=== PATIENT | male | born 1975 | race Caucasian/White ===

== ENCOUNTER 2019-04-05 01:41 | Outpatient (CLI) | payer MEDICAID, SELFPAY ==
[2019-04-05] MEDS: Gadoterate meglumine 20 ML VIAL 16 ML IVP (10:10)
[2019-04-05] MEDS: Normal Saline Flush 10 ML SYR IVP (10:11)
--- NOTE | 2019-04-05 10:39 | DI.MRI_ITS ---
SYMPTOMS/DIAGNOSIS: ABNL AUDITORY PERCEPTION, H93.299 MRI OF THE BRAIN AND INTERNAL AUDITORY CANALS: Comparison is made with head CT dated [id number]. T 2 sagittal, T 1, T 2, FLAIR, diffusion and gradient echo axial and post Gadolinium axial and coronal sequences were performed of the entire brain. Thin T 2 3D axial and pre and post Gadolinium T 1 axial and coronal sequences were performed through the internal auditory canals. There is no evidence of an acoustic neuroma or other CP angle mass. The mastoid air cells and internal auditory and external auditory canals appear clear. There are no abnormal enhancing lesions. The brain has a normal appearance. There are no abnormal high signal lesions in the white matter. The ventricles are normal in size. The orbits, sinuses and pituitary are unremarkable. IMPRESSION: Negative MRI of the brain and internal auditory canals.
== END 2019-04-05 02:01 ==
PROVIDERS: PCP Physician Assistant Medical; Visit Provider Physician Assistant
DX: H93.299 Other abnormal auditory perceptions, unspecified ear (principal)
CPT/HCPCS: 70553

== ENCOUNTER 2019-06-28 16:00 | Outpatient (REF) | payer MEDICAID, SELFPAY ==
[2019-06-28 20:49] LABS: Calculated LDL 229 mg/dL; Cholesterol 289 mg/dL (50-200); HDL Cholesterol 33 mg/dL (40-60); Triglyceride 136 mg/dL (30-150)
== END 2019-06-28 16:20 ==
LOC: NCHCN 16:00
PROVIDERS: PCP Physician Assistant Medical; Visit Provider Physician Assistant Medical
DX: Z13.220 Encounter for screening for lipoid disorders (principal)
CPT/HCPCS: 80061; 83721

== ENCOUNTER 2019-07-12 15:56 | Emergency (ER) | payer MEDICAID, SELFPAY ==
[2019-07-12 16:03] VITALS: BP 110/70; PULSE 80; RESP 16; TEMP 36.3; O2SAT 99
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
[2019-07-12] MEDS: Acetaminophen 500 MG TAB 1000 MG PO (16:16)
[2019-07-12] MEDS: Ibuprofen 600 MG TAB PO (16:16)
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
[2019-07-12 17:40] VITALS: BP 110/70; PULSE 80; RESP 16; TEMP 36.3; O2SAT 99
== END 2019-07-12 17:39 | disposition home or self-care (01) ==
PROVIDERS: Emergency Provider Physician Assistant; PCP Physician Assistant Medical
DX: S62.331A Displaced fracture of neck of second metacarpal bone, left hand, initial encounter for closed fracture (principal); W22.09XA Striking against other stationary object, initial encounter
CPT/HCPCS: 26600; 73130

== ENCOUNTER 2020-04-28 12:55 | Emergency (ER) | payer MEDICAID, SELFPAY ==
[2020-04-28] VITALS (18 sets, daily range): BP systolic 116–134; BP diastolic 64–89; PULSE 52–75; RESP 12–29; TEMP 36.5; O2SAT 97–100
--- NOTE | 2020-04-28 12:48 | ED.GENADUL_ITS ---
Discharge Plan Disposition Patient Disposition: HOME Condition: Stable Discharge Details Chief Complaint: AMS/LOC Clinical Impression: Unresponsive episode, History of traumatic brain injury, Closed head injury Primary Care Provider: Tricia Leach ED Provider: Abida Garza Home Meds and New Rx's Prescriptions: Discontinued levetiracetam 500 mg Tablet 500 mg PO BID RF: 0 Discharge Instructions Instructions: Head Injury (ED) Additional Instructions: Drink plenty of fluids and get plenty of rest. Take Tylenol as needed and directed for pain. Follow-up with your primary care doctor in 1 week. Return to the emergency department with any worsening or new concerning symptoms. Discharge Data Discharge Date/Time-TO BE ENTERED AT DEPARTURE: 04/28/20 16:18 Discharge Physician: Abida Garza Medical Decision Making 1300 -- 44-year-old male with a history of anxiety, traumatic brain injury presents for after found unresponsive on a porch by a neighbor earlier today. Patient on arrival with a strong gag reflex. He then suddenly awake and was moving all extremities and answering questions. He has a superficial abrasion to his forehead no other evidence of trauma. He is moving all extremities. Lungs clear. Abdomen soft nontender. He has midline T-spine tenderness. Will obtain CT head/facial bone/cervical spine/chest/abdomen/pelvis/thoracic and lumbar spine. Will obtain screening labs including tox work-up and urinalysis. 1430 --labs and imaging reviewed and unremarkable. Patient reassessed -- he is awake, slightly drowsy but oriented x3 and able an swer questions. Still complaining of headache. Will give another liter of fluids, IV Tylenol, attempt p.o. challenge and ambulate. 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 She states they occur almost daily, sometimes more severe in which he seems to become unresponsive which last anywhere from a few seconds to a few minutes. She states at the time of his head injury, he was ruled out for seizures regarding these drop attacks. 1545 --patient able to eat and ambulate without any acute complaints. Patient feels good to go home. Advised to follow up with the primary care doctor for re-evaluation. Usual and customary return precautions given prior to discharge. Medical Records Medical records reviewed: Yes I reviewed the patient's medical records. Imaging Data Radiologic Study: Radiologist's impression: CT Thoracic Spine Without Contrast Exam date and time: 04/28/2020 1:43 PM Age: 44 years old Clinical indication: Other: Recon, S/P fall, R/O acute fracture TECHNIQUE: Imaging protocol: Computed tomography images of the thoracic spine without contrast. Radiation optimization: All CT scans at this facility use at least one of these dose optimization techniques: automated exposure control; mA and/or kV adjustment per patient size (includes targeted exams where dose is matched to clinical indication); or iterative reconstruction. COMPARISON: CR LUMBAR SPINE COMPLETE 03/28/2015 11:21 AM FINDINGS: Mild degenerative spurring of the thoracic spine. No focal subluxation. No acute fractures. Paraspinous soft tissues unremarkable. No definite significant disc protrusion or herniation. IMPRESSION: No evidence of acute bony abnormality. CT Lumbar Spine Without Contrast Exam date and time: 04/28/2020 1:43 PM Age: 44 years old Clinical indication: Other: Recon, S/P fall, R/O acute fracture TECHNIQUE: Imaging protocol: Computed tomography images of the lumbar spine without contrast. Radiation optimization: All CT scans at this facility use at least one of these dose optimization techniques: automated exposure control; mA and/or kV adjustment per patient size (includes targeted exams where dose is matched to clinical indication); or iterative reconstruction. COMPARISON: CR LUMBAR SPINE COMPLETE 03/28/2015 11:21 AM FINDINGS: Mild degenerative spurring of the lumbar spine. No focal subluxation. No acute fractures. Paraspinous soft tissues unremarkable. No definite significant disc protrusion or herniation. IMPRESSION: No evidence of acute bony abnormality. CT Chest With Contrast Exam date and time: 04/28/2020 1:43 PM Age: 44 years old Clinical indication: Injury or trauma; Injury history: Found unconcious; Initial encounter; Unconscious TECHNIQUE: Imaging protocol: Computed tomography of the chest with intravenous contrast. COMPARISON: No relevant prior studies available. FINDINGS: Mediastinum appears unremarkable. No pneumothorax. No pleural effusion. Bony structures appear intact. IMPRESSION: No evidence of significant thoracic trauma. CT Abdomen And Pelvis With Contrast Exam date and time: 04/28/2020 1:43 PM Age: 44 years old Clinical indication: Injury or trauma; Injury history: Found unconcious; Initial encounter; Unconscious TECHNIQUE: Imaging protocol: Computed tomography of the abdomen and pelvis with intravenous contrast. COMPARISON: No relevant prior studies available. FINDINGS: Liver, spleen, and kidneys appear intact. No abnormal fluid collections. No extraluminal air. Bony structures appear intact. IMPRESSION: No evidence of significant abdominal or pelvic trauma. CT Head Without Contrast Exam date and time: 04/28/2020 1:13 PM Age: 44 years old Clinical indication: Injury or trauma; Injury history: Unknown, PT has known tbi and is unable to communicate, found unconscious at home; Initial encounter; Blunt trauma (contusions or hematomas) TECHNIQUE: Imaging protocol: Computed tomography of the head without contrast. COMPARISON: No relevant prior studies available. FINDINGS: No evidence of hemorrhage. No mass effect. No acute intracranial abnormality. No evidence of acute fracture. IMPRESSION: No evidence of acute intracranial process. CT Maxillofacial Without Contrast Exam date and time: 04/28/2020 1:13 PM Age: 44 years old Clinical indication: Injury or trauma; Injury history: Unknown, PT has known tbi and is unable to communicate, found unconscious at home; Initial encounter; Blunt trauma (contusions or hematomas) Other procedure information: He TECHNIQUE: Imaging protocol: Computed tomography images of the face without contrast. COMPARISON: No relevant prior studies available. FINDINGS: Orbits: Globes appear intact. Bones/joints: Facial bones appear intact. Sinuses: Paranasal sinuses unremarkable. Soft tissues: No radiopaque foreign bodies. IMPRESSION: No evidence of acute bony abnormality. CT Cervical Spine Without Contrast Exam date and time: 04/28/2020 1:13 PM Age: 44 years old Clinical indication: Injury or trauma; Injury history: Unknown, PT has known tbi and is unable to communicate, found unconscious at home; Initial encounter; Blunt trauma (contusions or hematomas) TECHNIQUE: Imaging protocol: Computed tomography images of the cervical spine without contrast. COMPARISON: No relevant prior studies available. FINDINGS: Mild degenerative disc and facet disease of the mid cervical spine. No focal subluxation. No acute fracture. Paraspinous soft tissues unremarkable. IMPRESSION: No evidence of acute bony abnormality. Lab Data Lab results reviewed: Yes I reviewed the patient's lab results. Labs: Laboratory Tests Range/Units 04/28/20 04/28/20 04/28/20 13:15 13:15 13:15 WBC (4.4-10.8) k/cumm 7.84 RBC (4.50-6.00) m/cumm 4.94 Hgb (13.5-17.5) g/dL 16.3 Hct (40.0-50.0) % 44.8 MCV (80-95) fL 90.7 MCH (27.0-33.0) pg 33.0 MCHC (32.0-36.0) g/dL 36.4 H RDW (11.8-14.1) % 12.2 Plt Count (130-400) x1000/uL 243 MPV (8.0-11.0) fL 10.4 Immature Gran % % 0.3 Neutrophils % 75.5 Lymphocytes % 14.2 Monocytes % 8.7 Eosinophils % 1.0 Basophils % 0.3 Absolute Neutrophils (1.2-6.7) k/cumm 5.93 Absolute Lymphocytes (1.2-3.4) k/cumm 1.11 L Absolute Monocytes (0.11-0.7) k/cumm 0.68 Absolute Eosinophils (0.0-0.7) k/cumm 0.08 Absolute Basophils (0.0-0.2) k/cumm 0.02 PT (9.3-11.0) sec INR (0.9-1.1) APTT (21.0-31.4) sec Sodium (136-145) mmol/L 139 Potassium (3.5-5.1) mmol/L 4.7 Chloride (98-107) mmol/L 105 Carbon Dioxide (21.0-32.0) mmol/L 24.2 Anion Gap (3-11) mmol/L 9.8 BUN (7-18) mg/dL 13 Creatinine (0.70-1.30) mg/dL 1.48 H Estimated GFR/1.73 m2 (mL/min/1.73m2) 51.40 Glucose (74-106) mg/dL 103 Calcium (8.5-10.1) mg/dL 8.8 Magnesium (1.8-2.4) mg/dL 2.6 H Total Bilirubin (0.2-1.0) mg/dL 0.4 AST (15-37) U/L 28 ALT (16-63) U/L 36 Alkaline Phosphatase (46-116) U/L 114 Troponin I (<0.06) ng/mL < 0.05 Total Protein (6.4-8.2) g/dL 7.4 Albumin (3.4-5.0) g/dL 4.0 Lipase (73-393) U/L 85 Urine Color (Yellow) Urine Clarity (Clear) Urine pH (5-8) Ur Specific [place] (1.005-1.025) Urine Protein (Negative) mg/dL Urine Ketones (Negative) mg/dL Urine Blood (Negative) Urine Nitrite (Negative) Urine Bilirubin (Negative) Urine Urobilinogen (Up TO 0.2) EU/dL Ur Leukocyte Esterase (Negative) Urine RBC (0-2) HPF Urine WBC (0-5) HPF Ur Epithelial Cells (Negative) HPF Urine Crystals (Negative) HPF Urine Bacteria (Negative) HPF Urine Casts (Negative) LPF Urine Mucus (Negative) Ur Culture Indicated? Urine Glucose (Negative) mg/dL Salicylates (2.8-20.0) mg/dL 5.7 Urine Opiates Screen (Negative) Urine Methadone Screen (Negative) Acetaminophen (10-30) ug/mL < 2 Ur Barbiturates Screen (Negative) Ur Tricyclics Screen (Negative) Ur Amphetamines Screen (Negative) U Benzodiazepines Scrn (Negative) Urine Cocaine Screen (Negative) Ur THC Screen (Negative) Ethyl Alcohol (<3) mg/dL < 3.0 Range/Units 04/28/20 04/28/20 04/28/20 13:15 14:10 14:10 WBC (4.4-10.8) k/cumm RBC (4.50-6.00) m/cumm Hgb (13.5-17.5) g/dL Hct (40.0-50.0) % MCV (80-95) fL MCH (27.0-33.0) pg MCHC (32.0-36.0) g/dL RDW (11.8-14.1) % Plt Count (130-400) x1000/uL MPV (8.0-11.0) fL Immature Gran % % Neutrophils % Lymphocytes % Monocytes % Eosinophils % Basophils % Absolute Neutrophils (1.2-6.7) k/cumm Absolute Lymphocytes (1.2-3.4) k/cumm Absolute Monocytes (0.11-0.7) k/cumm Absolute Eosinophils (0.0-0.7) k/cumm Absolute Basophils (0.0-0.2) k/cumm PT (9.3-11.0) sec 9.9 INR (0.9-1.1) 1.0 APTT (21.0-31.4) sec 22.8 Sodium (136-145) mmol/L Potassium (3.5-5.1) mmol/L Chloride (98-107) mmol/L Carbon Dioxide (21.0-32.0) mmol/L Anion Gap (3-11) mmol/L BUN (7-18) mg/dL Creatinine (0.70-1.30) mg/dL Estimated GFR/1.73 m2 (mL/min/1.73m2) Glucose (74-106) mg/dL Calcium (8.5-10.1) mg/dL Magnesium (1.8-2.4) mg/dL Total Bilirubin (0.2-1.0) mg/dL AST (15-37) U/L ALT (16-63) U/L Alkaline Phosphatase (46-116) U/L Troponin I (<0.06) ng/mL Total Protein (6.4-8.2) g/dL Albumin (3.4-5.0) g/dL Lipase (73-393) U/L Urine Color (Yellow) Yellow Urine Clarity (Clear) Clear Urine pH (5-8) 6.0 Ur Specific [place] (1.005-1.025) 1.020 Urine Protein (Negative) mg/dL 30 H Urine Ketones (Negative) mg/dL Negative Urine Blood (Negative) Trace-intact H Urine Nitrite (Negative) Negative Urine Bilirubin (Negative) Negative Urine Urobilinogen (Up TO 0.2) EU/dL 0.2 Ur Leukocyte Esterase (Negative) Negative Urine RBC (0-2) HPF 3-5 H Urine WBC (0-5) HPF 0-2 Ur Epithelial Cells (Negative) HPF Few Urine Crystals (Negative) HPF Negative Urine Bacteria (Negative) HPF Rare Urine Casts (Negative) LPF Negative Urine Mucus (Negative) Moderate Ur Culture Indicated? No Urine Glucose (Negative) mg/dL Negative Salicylates (2.8-20.0) mg/dL Urine Opiates Screen (Negative) Negative Urine Methadone Screen (Negative) Negative Acetaminophen (10-30) ug/mL Ur Barbiturates Screen (Negative) Negative Ur Tricyclics Screen (Negative) Negative Ur Amphetamines Screen (Negative) Negative U Benzodiazepines Scrn (Negative) Negative Urine Cocaine Screen (Negative) Negative Ur THC Screen (Negative) Positive A Ethyl Alcohol (<3) mg/dL ECG Data Attestation: I personally reviewed and interpreted this ECG (s) as follows: Interpretation: rate of 63, sinus, no acute st elevation or depression. WI 128. QTc 422. QRS 94. HPI General Mode of arrival: EMS . Date/Time Provider Initiated Documentation: 04/28/20 13:09 . Limitations to Documentation: no limitations . Information obtained by: patient . HPI Narrative: Pt is a 44yo M with a history of traumatic brain injury who presents after found semi-conscious on the porch by a neighbor. EMS reports that neighbor noted patient to be mowing the lawn earlier and then found him lying on his porch. EMS arrived to find patient breathing but unconscious. They state he then suddenly flailed his body around and appeared awake and talking only to then become unresponsive again. Vitals within normal limits in route. Patient initially arrival with positive gag reflex but then suddenly awoke unable to answer questions. He has no memory of events today. He does not remember mowing the lawn. He is complaining of frontal headache. He denies any alcohol or drug use. He denies any other pain. Related Data Allergies Allergy/AdvReac Type Severity Reaction Status Date / Time Penicillins Allergy Hives Unverified 07/18/19 11:50 raisins Allergy Severe Uncoded 07/18/19 11:50 General SIDNEY: 4 Review of Systems All systems reviewed & are unremarkable except as noted in HPI and below Constitutional Constitutional: Reports as per HPI, Denies chills, Denies fever(s) and Reports headache(s) Eyes Eyes: Denies blurry vision ENT Ears, Nose, Mouth, and Throat: Denies dizziness, Reports headache(s), Denies sore throat and Denies throat swelling Cardiovascular Cardiovascular: Denies chest pain and Denies dyspnea Respiratory Respiratory: Denies cough and Denies dyspnea Gastrointestinal Gastrointestinal: Denies abdominal pain, Denies diarrhea and Denies vomiting Genitourinary Genitourinary: Denies hematuria and Denies dysuria Musculoskeletal Musculoskeletal: Denies back pain and Denies numbness Integumentary/Breasts Skin/Breast: Denies lesions and Denies rash Neurologic Neurologic: Denies dizziness, Reports headache(s), Denies localized weakness and Denies numbness Allergic/Immunologic Allergic/Immunologic: Denies throat swelling PENDING SALE TO [facility] Medical History (Updated 04/28/20 @ 16:02 by Abida Garza DO) Anxiety (Chronic) Chronic back pain (Acute) TBI (traumatic brain injury) (Acute) Surgical History (Updated 04/28/20 @ 12:50 by Abida Garza DO) H/O shoulder surgery (Chronic) H/O vasectomy (Inactive) History of carpal tunnel release (Acute) History of knee surgery (Acute) Social History Smoking/Tobacco Use Status: Current every day Tobacco Type: cigarettes Alcohol Intake: former Drug use: Daily Substance use type: marijuana Details: marijuana THIS AM-1/2 BOWL Do you feel safe at home: Yes Exam Const General: cooperative and no acute distress Orientation: alert, awake and oriented x3 HENMT Head: normal to inspection Head images: 1. Superficial abrasion. Ears: hearing grossly normal bilaterally and external ears normal General nose exam: external nose normal Face and sinus: normal facial exam Mouth: oral mucosae normal Teeth and gingiva: dentition normal Eyes General: appearance normal, both eyes and all related structures Eyelids: eyelids normal Pupils: PERRL EOM: EOM intact bilaterally Neck Neck: normal visual inspection Lymphatic: no lymphadenopathy noted Chest Chest: normal inspection of the chest, normal palpation of entire chest wall and no tenderness Resp Effort & Inspection: normal respiratory effort and able to speak in complete se ntences Auscultation: clear to auscultation bilaterally Cardio Rate: regular rate Rhythm: regular rhythm GI Inspection: normal to inspection Palpation: soft, not firm, no guarding, no hepatosplenomegaly, no masses and nontender Auscultation: normal bowel sounds Back/Spine/Pelvis Cervical Spine: No cervical spinal tenderness Thoracic/Lumbar Spine: thoracic spinal tenderness and No lumbar spinal tenderness Skin General skin exam: no rashes or lesions noted Neuro General: patient alert, patient awake, patient oriented x3, moves all extremities, no meningeal signs and no focal motor deficits Cognition: normal cognition Speech: speech normal Motor: muscle tone normal throughout Sensory Exam: no sensory deficits noted Extrem General: normal to inspection, full ROM and capillary refill normal Psych Appearance: grossly normal Mental Status: mental status grossly normal Speech and Movement: speech and movement normal Affect: normal affect Thought Process: normal
[2020-04-28] MEDS: Normal Saline 1,000 ML 1000 ML IV ×2 (13:00→14:45)
--- NOTE | 2020-04-28 13:00 | DI.CT_ITS ---
EXAM: CT HEAD CERV SPINE FACIAL WO CLINICAL HISTORY: s/p fall, r/o acute fracture/intracranial injury EXAM: CT HEAD CERV SPINE FACIAL WO CLINICAL HISTORY: s/p fall, r/o acute fracture/intracranial injury. TECHNIQUE: Imaging Protocol: Axial computed tomography images with coronal and sagittal reformatted images were created and reviewed COMPARISON: CT CT HEAD WO CONTRAST from 05/13/[address] THORACIC LUMBAR SPINE REC from 04/28/2020 CONTRAST MATERIAL: Intravenous: Omnipaque 350 Contrast volume:100 ml FINDINGS: Cervical Spine CT BONES: Vertebral body heights are maintained. Intervertebral disc spaces are normal. Alignment is nor mal. There is no evidence of acute fracture. SOFT TISSUES: No paraspinal hematoma. The airway appears intact. Mild degenerative disc changes and facet degenerative changes are seen . Head CT Ventricles and Extra axial spaces: Normal in size and morphology for the patient's age. Hemorrhage: None. Cerebral parenchyma: Normal. Midline shift: None. Brainstem/Cerebellum: Normal. Calvarium: Normal. Visualized Paranasal sinuses/Mastoids: Clear. Facial CT: No evidence of facial fracture. The sinuses appear clear. The globes are intact. IMPRESSION: Negative head CT of the head, face and cervical spine. No posttraumatic findings. RADIATION DOSE DELIVERED: 2,068.8mGy.cm Total DLP 2,068.8mGy.cm Total DLP DATA REPOSITORY: All CT scans at this facility are submitted to the National Radiology Data Registry (NRDR) Dose Index Registry (DIR) with the [employer] ([employer]). RADIATION OPTIMIZATION: All CT scans at this facility use at least one of these dose optimization te chniques: automated exposure control; mA and/or kV adjustment per patient size (includes targeted exa ms where dose is matched to clinical indication); or iterative reconstruction. All CT scans at this facility use at least one of these dose optimization techniques: automated expos ure control; mA and/or kV adjustment per patient size (includes targeted exams where dose is matched to clinical indication); or iterative reconstruction.
--- NOTE | 2020-04-28 13:09 | DI.CT_ITS ---
EXAM: CT CHEST/ABD/PEL W CLINICAL HISTORY: s/p fall, r/o acute chest/intraabdominal injury. TECHNIQUE: Imaging Protocol: Axial computed tomography images with coronal and sagittal reformatted images were created and reviewed CONTRAST MATERIAL: Intravenous: Omnipaque 350 Contrast volume:100ml Oral: no COMPARISON: CT HEAD WITHOUT CONTRAST from 04/12/[address] HEAD WO CONTRAST from 05/13/[address] THORACIC LUMBAR SPINE REC from 04/28/2020 FINDINGS: CHEST: Tracheobronchial tree: Patent where visualized. Mediastinum and Jenise: No dominant adenopathy or fluid collection. Pulmonary parenchyma: No consolidation or dominant measurable mass. No architectural distortion. Pleura: No effusion or pneumothorax. Lymph nodes: Within normal limits. Aorta: Thoracic portion non-dilated. Bones: There is no evidence of rib, spine or sternal fracture. ABDOMEN: Liver: Normal density. No measurable mass. Gallbladder and biliary tract: No radiodense calculus or dilation. Pancreas: Normal density, no abnormal calcifications or inflammatory process. Spleen: Normal. Kidneys: Normal size, contour and axis. No radiodense stones or obstructive uropathy. No masses seen. Adrenal glands: No masses seen. Aorta: Abdominal portion non-dilated. Lymph nodes: Within normal limits. PELVIS: Bladder: Symmetric distention, no gross wall thickening. Bowel: No obstruction or bowel wall thickening. Peritoneal cavity: No ascites, collection or mesenteric inflammatory response. Bones: Mild degenerative changes. No evidence spine or pelvic fracture.. Reproductive organs: Within normal limits. SPINE RECONSTRUCTIONS: THORACIC: Bones: No fractures or dislocations are seen. The alignment of the spine is normal including the cerv icothoracic junction. LUMBAR: Soft Tissues: The visualized SI joints and sacrum are will maintained. The paraspinal soft tissues a re unremarkable. Bones: No fractures or dislocations are seen. The alignment of the spine is normal. Mild degenerative disc changes and facet degenerative changes are seen . IMPRESSION: Normal CT scan of the chest, abdomen, and pelvis. No acute posttraumatic abnormality. No acute abnormality of the thoracic and lumbar spine. RADIATION DOSE DELIVERED: 1630mGy total DLP DATA REPOSITORY: All CT scans at this facility are submitted to the National Radiology Data Registry (NRDR) Dose Index Registry (DIR) with the [employer] ([employer]). RADIATION OPTIMIZATION: All CT scans at this facility use at least one of these dose optimization te chniques: automated exposure control; mA and/or kV adjustment per patient size (includes targeted exa ms where dose is matched to clinical indication); or iterative reconstruction.
[2020-04-28] MEDS: Ondansetron 4 MG/2 ML VIAL (13:29)
[2020-04-28] MEDS: Normal Saline - Diluent 50 ML VIAL IV (13:32)
[2020-04-28] MEDS: Omnipaque 350 MG/ML 100 ML BTL IJ (13:32)
[2020-04-28] MEDS: Normal Saline Flush 10 ML SYR IVP ×2 (13:33→14:37)
[2020-04-28 13:35] LABS: Abs Immature Grans 0.02 k/cumm (0.0-0.09); Absolute Basophil Count 0.02 k/cumm (0.0-0.2); Absolute Eosinophil Count 0.08 k/cumm (0.0-0.7); Absolute Lymphocyte Count 1.11 k/cumm (1.2-3.4); Absolute Monocyte Count 0.68 k/cumm (0.11-0.7); Absolute Neutrophil Count 5.93 k/cumm (1.2-6.7); Basophils % 0.3; HCT 44.8 % (40.0-50.0); HGB 16.3 g/dL (13.5-17.5); Immature Grans % 0.3 %; Lymphocytes % 14.2; Mean Corp. HGB Concentration 36.4 g/dL (32.0-36.0); Mean Corpuscular Volume 90.7 fL (80-95); Mean Platelet Volume 10.4 fL (8.0-11.0); Monocytes % 8.7; Neutrophils % 75.5; Platelet Count 243 x1000/uL (130-400); RBC 4.94 m/cumm (4.50-6.00); RBC Distribution Width 12.2 % (11.8-14.1); White Blood Cell Count 7.84 k/cumm (4.4-10.8)
[2020-04-28 13:44] LABS: PTT Activated 22.8 sec (21.0-31.4); Prothrombin Time 9.9 sec (9.3-11.0)
[2020-04-28 13:46] LABS: ALT 36 U/L (16-63); AST 28 U/L (15-37); Alkaline Phosphatase 114 U/L (46-116); Anion Gap 9.8 mmol/L (3-11); BUN 13 mg/dL (7-18); Bilirubin, Total 0.4 mg/dL (0.2-1.0); CO2 24.2 mmol/L (21.0-32.0); CREATININE 1.48 mg/dL (0.70-1.30); Calcium 8.8 mg/dL (8.5-10.1); Chloride 105 mmol/L (98-107); Glucose 103 mg/dL (74-106); Lipase 85 U/L (73-393); Magnesium 2.6 mg/dL (1.8-2.4); Potassium 4.7 mmol/L (3.5-5.1); Sodium 139 mmol/L (136-145); Total Protein 7.4 g/dL (6.4-8.2)
[2020-04-28 13:48] LABS: Salicylate 5.7 mg/dL (2.8-20.0)
[2020-04-28 13:54] LABS: ETHANOL BLOOD < 3.0 mg/dL (<3); Troponin I < 0.05 ng/mL (<0.06)
[2020-04-28 13:57] LABS: Acetaminophen < 2 ug/mL (10-30)
[2020-04-28 14:18] LABS: Bilirubin Negative (Negative); Blood Trace-intact (Negative); Clarity Clear (Clear); Glucose Negative (Negative); Ketones Negative (Negative); Leukocyte Esterase Negative (Negative); Nitrite Negative (Negative); Urobilinogen 0.2 EU/dL (Up TO 0.2)
--- NOTE | 2020-04-28 14:22 | DI.VRAD_ITS ---
PROCEDURE INFORMATION: Exam: CT Head Without Contrast Exam date and time: 04/28/2020 1:13 PM Age: 44 years old Clinical indication: Injury or trauma; Injury history: Unknown, PT has known tbi and is unable to communicate, found unconscious at home; Initial encounter; Blunt trauma (contusions or hematomas) TECHNIQUE: Imaging protocol: Computed tomography of the head without contrast. COMPARISON: No relevant prior studies available. FINDINGS: No evidence of hemorrhage. No mass effect. No acute intracranial abnormality. No evidence of acute fracture. IMPRESSION: No evidence of acute intracranial process. PROCEDURE INFORMATION: Exam: CT Maxillofacial Without Contrast Exam date and time: 04/28/2020 1:13 PM Age: 44 years old Clinical indication: Injury or trauma; Injury history: Unknown, PT has known tbi and is unable to communicate, found unconscious at home; Initial encounter; Blunt trauma (contusions or hematomas) Other procedure information: He TECHNIQUE: Imaging protocol: Computed tomography images of the face without contrast. COMPARISON: No relevant prior studies available. FINDINGS: Orbits: Globes appear intact. Bones/joints: Facial bones appear intact. Sinuses: Paranasal sinuses unremarkable. Soft tissues: No radiopaque foreign bodies. IMPRESSION: No evidence of acute bony abnormality. PROCEDURE INFORMATION: Exam: CT Cervical Spine Without Contrast Exam date and time: 04/28/2020 1:13 PM Age: 44 years old Clinical indication: Injury or trauma; Injury history: Unknown, PT has known tbi and is unable to communicate, found unconscious at home; Initial encounter; Blunt trauma (contusions or hematomas) TECHNIQUE: Imaging protocol: Computed tomography images of the cervical spine without contrast. COMPARISON: No relevant prior studies available. FINDINGS: Mild degenerative disc and facet disease of the mid cervical spine. No focal subluxation. No acute fracture. Paraspinous soft tissues unremarkable. IMPRESSION: No evidence of acute bony abnormality. Dictated and Authenticated by: Miguel Mclaughlin MD. Ordering:OTTONIEL Tai MD
[2020-04-28 14:25] LABS: WBC 0-2 HPF (0-5)
[2020-04-28 14:26] LABS: Bacteria Rare HPF (Negative); C & S Indicated? No; Casts Negative LPF (Negative); Crystals Negative HPF (Negative); Epithelial Cells Few HPF (Negative); Mucus Moderate (Negative)
[2020-04-28 14:31] LABS: *AMPHETAMINES SCREEN URINE Negative (Negative); *BARBITURATES SCREEN URINE Negative (Negative); *BENZODIAZEPINES SCREEN URINE Negative (Negative); Cannabinoids THC POSITIVE (Negative); Cocaine Screen,Urine Negative (Negative); METHADONE URINE SCREEN Negative (Negative); OPIATES URINE SCREEN Negative (Negative); Tricyclic Antidepressants Negative (Negative)
--- NOTE | 2020-04-28 14:34 | DI.VRAD_ITS ---
PROCEDURE INFORMATION: Exam: CT Chest With Contrast Exam date and time: 04/28/2020 1:43 PM Age: 44 years old Clinical indication: Injury or trauma; Injury history: Found unconcious; Initial encounter; Unconscious TECHNIQUE: Imaging protocol: Computed tomography of the chest with intravenous contrast. COMPARISON: No relevant prior studies available. FINDINGS: Mediastinum appears unremarkable. No pneumothorax. No pleural effusion. Bony structures appear intact. IMPRESSION: No evidence of significant thoracic trauma. PROCEDURE INFORMATION: Exam: CT Abdomen And Pelvis With Contrast Exam date and time: 04/28/2020 1:43 PM Age: 44 years old Clinical indication: Injury or trauma; Injury history: Found unconcious; Initial encounter; Unconscious TECHNIQUE: Imaging protocol: Computed tomography of the abdomen and pelvis with intravenous contrast. COMPARISON: No relevant prior studies available. FINDINGS: Liver, spleen, and kidneys appear intact. No abnormal fluid collections. No extraluminal air. Bony structures appear intact. IMPRESSION: No evidence of significant abdominal or pelvic trauma. Dictated and Authenticated by: Miguel Mclaughlin MD. Ordering:OTTONIEL Tai MD
[2020-04-28] MEDS: ACETAMINOPHEN 1,000 MG/100 ML BTL 400 MG IVPB (14:50)
--- NOTE | 2020-04-28 14:50 | DI.VRAD_ITS ---
PROCEDURE INFORMATION: Exam: CT Thoracic Spine Without Contrast Exam date and time: 04/28/2020 1:43 PM Age: 44 years old Clinical indication: Other: Recon, S/P fall, R/O acute fracture TECHNIQUE: Imaging protocol: Computed tomography images of the thoracic spine without contrast. Radiation optimization: All CT scans at this facility use at least one of these dose optimization techniques: automated exposure control; mA and/or kV adjustment per patient size (includes targeted exams where dose is matched to clinical indication); or iterative reconstruction. COMPARISON: CR LUMBAR SPINE COMPLETE 03/28/2015 11:21 AM FINDINGS: Mild degenerative spurring of the thoracic spine. No focal subluxation. No acute fractures. Paraspinous soft tissues unremarkable. No definite significant disc protrusion or herniation. IMPRESSION: No evidence of acute bony abnormality. PROCEDURE INFORMATION: Exam: CT Lumbar Spine Without Contrast Exam date and time: 04/28/2020 1:43 PM Age: 44 years old Clinical indication: Other: Recon, S/P fall, R/O acute fracture TECHNIQUE: Imaging protocol: Computed tomography images of the lumbar spine without contrast. Radiation optimization: All CT scans at this facility use at least one of these dose optimization techniques: automated exposure control; mA and/or kV adjustment per patient size (includes targeted exams where dose is matched to clinical indication); or iterative reconstruction. COMPARISON: CR LUMBAR SPINE COMPLETE 03/28/2015 11:21 AM FINDINGS: Mild degenerative spurring of the lumbar spine. No focal subluxation. No acute fractures. Paraspinous soft tissues unremarkable. No definite significant disc protrusion or herniation. IMPRESSION: No evidence of acute bony abnormality. Dictated and Authenticated by: Miguel Mclaughlin MD. Ordering:OTTONIEL Tai MD
[2020-05-01 13:36] LABS: Levetiracetam <2.0 mcg/mL
== END 2020-04-28 16:18 | disposition home or self-care (01) ==
PROVIDERS: Emergency Provider Physician Assistant; PCP Physician Assistant Medical
DX: S09.90XA Unspecified injury of head, initial encounter (principal); S00.81XA Abrasion of other part of head, initial encounter; X58.XXXA Exposure to other specified factors, initial encounter; R40.20 Unspecified coma; M54.6 Pain in thoracic spine; Z87.820 Personal history of traumatic brain injury
CPT/HCPCS: 36415; 74177; 80053; 80307; 83690; 93005; 96361; 96374; 96375; 99285; 70450; 70486; 71260; 72125; 80177; 80320; 80329; 81003; 81015; 83735; 84484; 85025; 85610; 85730; 93010; J0131; J2405; J3490